=== PATIENT | male | born 1965 | race Asian ===

== ENCOUNTER 2018-06-08 20:02 | Inpatient (IN) | payer BC, OTHER ==
[~2018-06-08] VITALS: Ht 160 cm; Wt 72.6 kg
--- NOTE | 2018-06-08 20:09 | NUR ---
PT AMBULATES TO ER ACCOMPANIED BY WITH C/O EPIGASTRIC PAIN, SOB, AND N/V SINCE 1600 TODAY. PT DENIES CHEST PAIN, DIARRHEA, CONSTIPATION AT THIS TIME. SA02 100% RA. NSR ON MONITOR.
[2018-06-08] MEDS ORDERED: IV NORMAL SALINE 1000 ML BAG IV ONE (20:15)
[2018-06-08] MEDS ORDERED: ONDANSETRON 4 MG/2 ML VIAL IV ONE (20:15)
[2018-06-08] MEDS ORDERED: HYDROMORPHONE 1 MG/1 ML DISP.SYRIN IV ONE (20:15)
--- NOTE | 2018-06-08 20:23 | NUR ---
LABS DRAWN, MEDS GIVEN. XRAY AT BEDSIDE.
[2018-06-08] MEDS ORDERED: HYDROMORPHONE 1 MG/1 ML DISP.SYRIN ONE (20:26)
[2018-06-08] MEDS ORDERED: ONDANSETRON 4 MG/2 ML VIAL ONE (20:26)
[2018-06-08 20:39] LABS: BASOPHILS % (AUTO) 0.3 % (0.0-2.0); EOSINOPHILS % (AUTO) 0.2 % (0.0-7.0); HEMATOCRIT 44.6 % (36.7-47.1); HEMOGLOBIN 15.4 g/dL (12.5-16.3); LYMPHOCYTES # (AUTO) 0.7 K/uL (20.0-40.0); LYMPHOCYTES % (AUTO) 5.7 % (20.5-51.5); MEAN CORPUSCULAR HEMOGLOBIN 32.1 uug (23.8-33.4); MEAN CORPUSCULAR HGB CONC 34 g/dL (32.5-36.3); MEAN CORPUSCULAR VOLUME 93.1 fL (73.0-96.2); MONOCYTES # (AUTO) 0.3 K/uL (2.0-10.0); MONOCYTES % (AUTO) 2.8 % (0.0-11.0); NEUTROPHILS # (AUTO) 10.8 K/uL (1.8-8.9); PLATELET COUNT (AUTO) 280 K/uL (152-348); RED BLOOD CELL COUNT(AUTO) 4.79 MIL/uL (4.06-5.63); WHITE BLOOD COUNT (AUTO) 11.9 K/uL (3.6-10.2)
[2018-06-08 20:51] LABS: ALANINE AMINOTRANSFERASE 30 U/L (16-63); ALKALINE PHOSPHATASE 47 U/L (50-136); ASPARTATE AMINOTRANSFERASE 27 U/L (15-37); BILIRUBIN,DIRECT < 0.1 mg/dL (0.0-0.2); BILIRUBIN,TOTAL 0.4 mg/dL (0.2-1.0); CARBON DIOXIDE 25 mmol/L (21-32); CHLORIDE 99 mmol/L (98-107); CREATININE 0.7 mg/dL (0.6-1.3); GLUCOSE 131 mg/dL (74-106); LIPASE 248 U/L (73-393); POTASSIUM 3.9 mmol/L (3.5-5.1)
[2018-06-08 21:00] LABS: UREA NITROGEN, BLOOD 13 mg/dL (7-18)
[2018-06-08] MEDS ORDERED: IOHEXOL 300MG/ML 100 ML INFUS..BTL ONE (21:29)
[2018-06-08] MEDS ORDERED: NORMAL SALINE FLUSH 10 ML DISP.SYRIN ONE (21:29)
[2018-06-08] MEDS ORDERED: SWABABLE VALVE TRANSFER SET EA MC ONE (21:29)
[2018-06-08] MEDS ORDERED: IV NORMAL SALINE 250 ML IV ONE (21:29)
[2018-06-08] MEDS ORDERED: PIPERACILLIN SODIUM/TAZOBACTAM 3.375 G in IV DEXTROSE 5% 50 ML IV ONE (21:45)
[2018-06-08] MEDS ORDERED: KETOROLAC TROMETHAMINE 30 MG INJ IVP ONE (21:45)
[2018-06-08] MEDS ORDERED: PIPERACILLIN/TAZOBACTAM/D5W 50 ML IV ONE (22:05)
[2018-06-08] MEDS ORDERED: KETOROLAC TROMETHAMINE 30 MG INJ ONE (22:05)
--- NOTE | 2018-06-08 22:11 | NUR ---
PT BACK FROM CT SCAN. PT PLACED BACK ON MONITOR. PAIN MED GIVEN. ANTIBIOTIC INFUSING. AT BEDSIDE.
[2018-06-08 22:46] LABS: *BILIRUBIN,URIN NEGATIVE (NEGATIVE); *BLOOD, URINE Trace-intact (NEGATIVE); *CLARITY,URINE CLEAR (CLEAR); *COLOR,URINE YELLOW (YELLOW); *KETONES,URINE TRACE (NEGATIVE); *PROTEIN,URINE NEGATIVE (NEGATIVE); *UROBILINOGEN,URINE 0.2 E.U./dl (NORMAL); LEUKOCYTE ESTERASE ,URINE NEGATIVE (NEGATIVE); NITRITE, URINE NEGATIVE (NEGATIVE); PH,URINE 7.5 (5.0-8.0); UGLUCOSE NEGATIVE (NEGATIVE)
[2018-06-08 22:51] LABS: BACTERIA,URINE NONE SEEN /HPF (NONE SEEN); RBC,URINE 0-3 /HPF (0-3); SQUAMOUS EPITHELIAL CELL,UR NONE SEEN /HPF (NONE SEEN); WBC,URINE 0-3 /HPF (0-3)
--- NOTE | 2018-06-08 23:03 | NUR ---
Pt. admitted to MED/SURG , under care of CHERIE AGUILERA. Diagnosis: Cholecystitis Belongs List completed Report given to Thiago MCCALL.
[2018-06-08] MEDS ORDERED: Z GUARD REMEDY PASTE 57 GM TUBE TOP PRN (23:15)
[2018-06-08] MEDS ORDERED: MAGNESIUM HYDROXIDE 30 ML LIQUID UDC PO PRN (23:15)
[2018-06-08] MEDS ORDERED: ACETAMINOPHEN 325 MG TABLET PO PRN (23:15)
[2018-06-08] MEDS ORDERED: ONDANSETRON 4 MG/2 ML VIAL IV PRN (23:15)
--- NOTE | 2018-06-08 23:20 | NUR ---
Received patient from ER nurse in stable condition. No acute distress noted. Family at the bedside. Admit Dx of Cholelithiasis under [facility]IE[facility] Carmela Kang. Pertinent assessment completed. Patient is A/Ox4 & able to make all needs known. Noted with Right forearm peripheral IV 20G running with D5 1/2 NS at 75cc/hr. No signs of infiltration at IV site. Patient currently denying pain & SOB. Call light within reach of patient. Will continue to monitor through shift.
[2018-06-09] VITALS: BP 139/88
[2018-06-09] MEDS: IV D5 1/2 NS 1000 ML 1,000 ML IV PRN ×2 (00:05→12:07)
[2018-06-09 04:00] VITALS: BP 155/93
[2018-06-09] MEDS: KETOROLAC TROMETHAMINE 30 MG INJ IVP PRN ×2 (04:38→11:06)
[2018-06-09] MEDS ORDERED: PIPERACILLIN SODIUM/TAZO 3.375 GM VIAL ONE (04:58)
[2018-06-09 05:21] LABS: BASOPHILS % (AUTO) 0.2 % (0.0-2.0); EOSINOPHILS # (AUTO) 0.1 K/uL (0.0-0.7); EOSINOPHILS % (AUTO) 0.8 % (0.0-7.0); HEMOGLOBIN 14.9 g/dL (12.5-16.3); LYMPHOCYTES % (AUTO) 7.3 % (20.5-51.5); MEAN CORPUSCULAR HEMOGLOBIN 32.4 uug (23.8-33.4); MEAN CORPUSCULAR HGB CONC 35 g/dL (32.5-36.3); MEAN CORPUSCULAR VOLUME 91.5 fL (73.0-96.2); MONOCYTES # (AUTO) 1.1 K/uL (2.0-10.0); MONOCYTES % (AUTO) 8.1 % (0.0-11.0); NEUTROPHILS % (AUTO) 83.6 % (38.5-71.5); PLATELET COUNT (AUTO) 271 K/uL (152-348); RED BLOOD CELL COUNT(AUTO) 4.59 MIL/uL (4.06-5.63); WHITE BLOOD COUNT (AUTO) 13.1 K/uL (3.6-10.2)
[2018-06-09] MEDS: PIPERACILLIN/TAZOBACTAM/D5W 50 ML IV SCH ×4 (05:29→23:01)
[2018-06-09 05:43] LABS: CREATININE 0.7 mg/dL (0.6-1.3); MAGNESIUM 1.9 mg/dL (1.8-2.4); PHOSPHOROUS 3.1 mg/dL (2.5-4.9); POTASSIUM 3.2 mmol/L (3.5-5.1)
[2018-06-09 05:52] LABS: THYROID STIMULATING HORMONE 0.461 mIU/mL (0.358-3.740)
--- NOTE | 2018-06-09 06:26 | NUR ---
Patient stable through shift. No acute distress noted. Complaints of pain during the shift. BP elevated d/t pain. Pain management provided per MD order. All needs attended to. Medications administered per MD order. Patient to have Hida scan at 12 noon per Radiology. Consent form signed & placed in chart. Safety & comfort measures provided. Call light within reach. Will endorse to oncoming shift.
--- NOTE | 2018-06-09 08:00 | NUR ---
AWAKE ALERT COOPERATE WELL NO SOB OR ABD PAIN AT THIS TIME KEEP NPO ,SCHEDULE FOR HIDA SCAN TODAY AT NOON ,CONTINUE IVF INFUSION WELL RFA RESTING QUIET IN BED WITH CALL LIGHT IN REACH AND FAMILY AT BEDSIDE
--- NOTE | 2018-06-09 10:45 | NUR ---
Dorcas JEREZ SEEN PATIENT AND LAB RESULT AND ORDER IN CHART KCL IVPB GIVE ORDER
[2018-06-09] MEDS: POTASSIUM CHLORIDE 50 ML IV SCH ×3 (11:04→18:04)
--- NOTE | 2018-06-09 11:06 | NUR ---
C/O OF MID ABD PAIN MEDICATION PRN TORADOL GIVEN ORDER
[2018-06-09 11:49] VITALS: BP 140/91
--- NOTE | 2018-06-09 12:45 | NUR ---
TO NUCLEAR MED VIA W/C CONDITION STABLE
[2018-06-09 15:59] VITALS: BP 135/89
--- NOTE | 2018-06-09 16:30 | NUR ---
BACK TO ROOM CONTINUE IVF AND KCL IVPB STILL KEEP NPO WAITING FOR RESULT OF HIDA SCAN
--- NOTE | 2018-06-09 17:00 | NUR ---
HIDA SCAN RESULT BACK INFORM TO Dorcas CRESPO AT THIS TIME ,PATIENT RESTING QUIET NO PAIN OR N/V
--- NOTE | 2018-06-09 17:30 | NUR ---
STABLE HEMODYNAMIC STATUS ,PAIN UNDER CONTROL NO ACUTE DISTRESS SAFETY AND COMFORT MEASURE PROVIDED CALLLIGHT WITHIN REACH KEEP NPO AND CONTINUE IVF
--- NOTE | 2018-06-09 19:10 | NUR ---
RECEIVED PT AWAKE ON BED, NO COMPLAINTS OF DISCOMFORT AT THIS TIME. IV SITE ON RFA, PATENT AND INTACT. SAFETY MEASURES INITIATED, CALL GRUBER WITHIN REACH.
[2018-06-09 20:17] VITALS: BP 140/91
[2018-06-10] VITALS (8 sets, daily range): BP systolic 113–139; BP diastolic 75–93
[2018-06-10] MEDS: PIPERACILLIN/TAZOBACTAM/D5W 50 ML IV SCH ×3 (05:02→16:55)
[2018-06-10 06:32] LABS: BASOPHILS # (AUTO) 0.1 K/uL (0.0-8.0); BASOPHILS % (AUTO) 0.5 % (0.0-2.0); EOSINOPHILS # (AUTO) 0.4 K/uL (0.0-0.7); EOSINOPHILS % (AUTO) 3.4 % (0.0-7.0); HEMATOCRIT 42.9 % (36.7-47.1); HEMOGLOBIN 14.7 g/dL (12.5-16.3); LYMPHOCYTES # (AUTO) 1.1 K/uL (20.0-40.0); LYMPHOCYTES % (AUTO) 10.9 % (20.5-51.5); MEAN CORPUSCULAR HEMOGLOBIN 32.2 uug (23.8-33.4); MEAN CORPUSCULAR HGB CONC 34 g/dL (32.5-36.3); MEAN CORPUSCULAR VOLUME 94.1 fL (73.0-96.2); MONOCYTES % (AUTO) 9.6 % (0.0-11.0); NEUTROPHILS % (AUTO) 75.6 % (38.5-71.5); PLATELET COUNT (AUTO) 283 K/uL (152-348); RED BLOOD CELL COUNT(AUTO) 4.56 MIL/uL (4.06-5.63); WHITE BLOOD COUNT (AUTO) 10.6 K/uL (3.6-10.2)
--- NOTE | 2018-06-10 06:41 | NUR ---
PT ON BED, AAOX4, DENIES ANY SOB OR PAIN AT THIS TIME. IV SITE ON RFA, PATENT AND INTACT. PT KEPT ON NPO POST MIDNIGHT. ALL NEEDS ATTENDED AND MET. SAFE ENVIRONMENT MAINTAINED AT ALL TIMES, CALL GRUBER WITHIN REACH.
[2018-06-10 06:46] LABS: CREATININE 0.9 mg/dL (0.6-1.3); PHOSPHOROUS 2.9 mg/dL (2.5-4.9); POTASSIUM 3.7 mmol/L (3.5-5.1)
--- NOTE | 2018-06-10 08:00 | NUR ---
AWAKE ALERT COOPERATE WELL NO SOB OR PAIN KEEP NPO FOR SURGERY TODAY ,CONTINUE IVF INFUSION WELL RFA RESTING QUIET IN BED WITH CALL LIGHT IN REACH
[2018-06-10] MEDS: IV D5 1/2 NS 1000 ML 1,000 ML IV PRN (08:49)
--- NOTE | 2018-06-10 14:00 | NUR ---
CONSENT SIGNS AND CHECK LIST COMPLETE RESTING WELL NO PAIN
[2018-06-10] MEDS ORDERED: LIDOCAINE 1%-EPI 1:100,000 20 ML VIAL ONE (16:00)
[2018-06-10] MEDS ORDERED: BUPIVACAINE 0.25% 30 ML VIAL ONE (16:00)
--- NOTE | 2018-06-10 17:00 | NUR ---
STABLE CONDITION NO ACUTE DISTRESS KEEP NPO FOR SURGERY TONIGHT AND CONTINUE IVF SAFETY MEASURE PROVIDED ,CALL LIGHT WITHIN REACH
--- NOTE | 2018-06-10 17:15 | NUR ---
TO SURGERY VIA BED ACCOMPANIES WITH HIS
[2018-06-10] MEDS ORDERED: HYDROMORPHONE 2 MG/1 ML DISP.SYRIN ONE (17:37)
[2018-06-10] MEDS ORDERED: MIDAZOLAM HCL 2 MG/2 ML VIAL ONE (17:37)
[2018-06-10] MEDS ORDERED: ROCURONIUM BROMIDE 50 MG/5 ML VIAL ONE (17:38)
[2018-06-10] MEDS ORDERED: LIDOCAINE HCL 1% 20 ML VIAL MC ONE (17:59)
[2018-06-10] MEDS ORDERED: IV D5W-0.45% NS 1000 ML BAG IV ONE (17:59)
[2018-06-10] MEDS ORDERED: PROPOFOL 200 MG/20 ML BOTTLE IV ONE (17:59)
[2018-06-10] MEDS ORDERED: NEOSTIGMINE METHYLSULFATE 10 MG/10 ML VIAL IV ONE (17:59)
[2018-06-10] MEDS ORDERED: GLYCOPYRROLATE 0.2 MG/ML VIAL MC ONE (17:59)
[2018-06-10] MEDS ORDERED: ONDANSETRON 4 MG/2 ML VIAL IV ONE (17:59)
[2018-06-10] MEDS ORDERED: DEXAMETHASONE SOD PHOSPHATE 4 MG INJ IV ONE (17:59)
[2018-06-10] MEDS ORDERED: SEVOFLURANE 250 ML BOTTLE IH ONE (17:59)
[2018-06-10] MEDS ORDERED: diphenhydrAMINE 50 MG/1 ML VIAL ONE (18:16)
[2018-06-10] MEDS ORDERED: FENTANYL CITRATE 100 MCG/2 ML AMPUL ONE (19:33)
--- NOTE | 2018-06-10 20:25 | NUR ---
RECEIVED PT IN UNIT FROM OR, PT RESTING COMFORTABLY ON BED. ALERT TO VERBAL AND TACTILE STIMULI. NO SIGNS OF ACUTE DISTRESS NOTED AT THIS TIME. ON O2 2L WITH 99% O2 SAT, TOLERATING WELL. BRYON DRAIN IN PLACE, INTACT AND DRAINING WELL VIA GRAVITY WITH MINIMAL SANGUINEOUS OUTPUT. INCENTIVE SPIROMETER PROVIDED AND EDUCATION DONE. IV SITE ON RFA, PATENT AND INTACT. SAFETY MEASURES INITIATED, CALL GRUBER WITHIN REACH.
[2018-06-11 00:39] VITALS: BP 119/82
[2018-06-11] MEDS: PIPERACILLIN/TAZOBACTAM/D5W 50 ML IV SCH ×5 (00:59→23:29)
[2018-06-11] MEDS: KETOROLAC TROMETHAMINE 30 MG INJ IVP PRN ×2 (01:17→10:54)
[2018-06-11 04:00] VITALS: BP 128/85
[2018-06-11 06:27] LABS: BASOPHILS % (AUTO) 0.2 % (0.0-2.0); EOSINOPHILS % (AUTO) 0.1 % (0.0-7.0); HEMATOCRIT 45.7 % (36.7-47.1); HEMOGLOBIN 15.6 g/dL (12.5-16.3); LYMPHOCYTES % (AUTO) 10.2 % (20.5-51.5); MEAN CORPUSCULAR HEMOGLOBIN 32.3 uug (23.8-33.4); MEAN CORPUSCULAR HGB CONC 34 g/dL (32.5-36.3); MEAN CORPUSCULAR VOLUME 94.7 fL (73.0-96.2); MONOCYTES # (AUTO) 0.7 K/uL (2.0-10.0); MONOCYTES % (AUTO) 7.2 % (0.0-11.0); NEUTROPHILS # (AUTO) 7.7 K/uL (1.8-8.9); NEUTROPHILS % (AUTO) 82.3 % (38.5-71.5); PLATELET COUNT (AUTO) 290 K/uL (152-348); RED BLOOD CELL COUNT(AUTO) 4.83 MIL/uL (4.06-5.63); WHITE BLOOD COUNT (AUTO) 9.4 K/uL (3.6-10.2)
[2018-06-11 06:47] LABS: BILIRUBIN,TOTAL 0.7 mg/dL (0.2-1.0); CREATININE 0.8 mg/dL (0.6-1.3); MAGNESIUM 2.2 mg/dL (1.8-2.4); PHOSPHOROUS 4.1 mg/dL (2.5-4.9); POTASSIUM 4.1 mmol/L (3.5-5.1); TOTAL PROTEIN, SERUM 7.4 g/dL (6.4-8.2)
--- NOTE | 2018-06-11 06:49 | NUR ---
PT RESTING COMFORTABLY ON BED. DENIES ANY DISCOMFORT AT THIS TIME. SX SITE KEPT C/D/I. BRYON DRAIN PATENT AND DRAINING WELL WITH MINIMAL SEROSANGUINEOUS DRAINAGE. ON O2 2L VIA NC WITH SATURATION OF 96%, TOLERATING WELL. ENCOURAGE TO USE INCENTIVE SPIROMETRY. PT VERBALIZED HE HASNT PASSED OUT FLATUS. SAFE ENVIRONMENT MAINTAINED AT ALL TIMES, CALL GRUBER WITHIN REACH.
--- NOTE | 2018-06-11 07:42 | NUR ---
Noted patient walking during change of shift. No immediate s/sx of SOB, distress or discomfort. Pt is now up in a chair and verbalizes no pain at this time, AAO times 4. Patient is accompanied by [facility]
[2018-06-11] MEDS ORDERED: PANTOPRAZOLE SODIUM 40 MG TABLET.DR PO SCH (09:00)
--- NOTE | 2018-06-11 09:21 | NUR ---
PT IS NOTED TO HAVE WALKED AROUND THE UNIT, PATIENT DENIES PAIN
[2018-06-11] MEDS: IV D5 1/2 NS 1000 ML 1,000 ML IV PRN ×2 (10:11→23:32)
[2018-06-11 12:41] VITALS: BP 127/69
[2018-06-11 15:46] VITALS: BP 98/56
--- NOTE | 2018-06-11 16:22 | NUR ---
PER PATIENT: PASSED FLATUS 3X's,NO PAIN AT THIS TIME
--- NOTE | 2018-06-11 17:16 | NUR ---
PT IS TOLERATING SITTING IN CHAIR. 45 CC REMOVED FROM BRYON DRAIN
[2018-06-11] MEDS: HYDROCODONE/APAP 5-325MG TABLET PO PRN (17:45)
--- NOTE | 2018-06-11 17:46 | NUR ---
Pt tolerating full liquids well. Pt stated pain level 5-6/10 on right side of the abdomen, [place] given
--- NOTE | 2018-06-11 18:51 | NUR ---
Pt has been compliant with medications and nursing care. Tolerating meals well, is now on full liquids, no s/sx of N/V/D, no BM yet. Pt has been able to verbalize his needs, has been ambulating throughout the day. Noted patient has a great support system.
--- NOTE | 2018-06-11 19:00 | NUR ---
RECEIVED IN BED ALERT ORIENTED, NO SOB NO CHEST PAIN, ABDOMEN DRESSING, RODRIGUEZ SYLVESTER WITH SEROSANGENIOUS DRAINAGE IN SMALL AMOUNT, CONTINUE TO APPLY ICE PACK FOR PAIN AND DISCOMFORT. CALL LIGHT WITHIN REACH.
[2018-06-11 19:34] VITALS: BP 125/80
[2018-06-12 03:33] VITALS: BP 135/89
[2018-06-12] MEDS: PIPERACILLIN/TAZOBACTAM/D5W 50 ML IV SCH ×3 (05:10→18:00)
--- NOTE | 2018-06-12 06:19 | NUR ---
PATIENT SLEPT MOST OF THE NIGHT, ABDOMINAL DRESSING INTACT, SITE WITH JACSON SYLVESTER DRAINING FROM SEROSANGUINEOUS TO PALE YELLOW DRAINING TOTAL 40CC. DID NOT REQUEST PAIN MEDICATION, ICE PACK WAS USED TO RELIEVE PAIN, PATIENT PASSING GAS, AND VOIDING FREELY, TOLERATE CURRENT DIET. NO BM YET. PATIENT HAS NO SOB NO CHEST PAIN, ASSISTED WITH TOILETING, ALSO USED URINAL FOR VOIDING, INSTRUCT PATIENT TO USED INCENTIVE SPIROMETER WHILE AWAKE AND TOLERATE, CALL LIGHT WITHIN REACH.
[2018-06-12 06:23] LABS: BASOPHILS # (AUTO) 0.1 K/uL (0.0-8.0); BASOPHILS % (AUTO) 0.9 % (0.0-2.0); EOSINOPHILS # (AUTO) 0.3 K/uL (0.0-0.7); EOSINOPHILS % (AUTO) 4.7 % (0.0-7.0); HEMATOCRIT 44.7 % (36.7-47.1); HEMOGLOBIN 15.2 g/dL (12.5-16.3); LYMPHOCYTES # (AUTO) 1.5 K/uL (20.0-40.0); LYMPHOCYTES % (AUTO) 24.4 % (20.5-51.5); MEAN CORPUSCULAR HEMOGLOBIN 32.3 uug (23.8-33.4); MEAN CORPUSCULAR HGB CONC 34 g/dL (32.5-36.3); MEAN CORPUSCULAR VOLUME 94.8 fL (73.0-96.2); MONOCYTES # (AUTO) 0.6 K/uL (2.0-10.0); NEUTROPHILS # (AUTO) 3.8 K/uL (1.8-8.9); PLATELET COUNT (AUTO) 281 K/uL (152-348); RED BLOOD CELL COUNT(AUTO) 4.72 MIL/uL (4.06-5.63); WHITE BLOOD COUNT (AUTO) 6.3 K/uL (3.6-10.2)
[2018-06-12 06:40] LABS: BILIRUBIN,TOTAL 0.7 mg/dL (0.2-1.0); CREATININE 0.8 mg/dL (0.6-1.3); POTASSIUM 3.4 mmol/L (3.5-5.1); TOTAL PROTEIN, SERUM 6.8 g/dL (6.4-8.2)
[2018-06-12] MEDS ORDERED: PANTOPRAZOLE SODIUM 40 MG TABLET.DR PO SCH (07:00)
--- NOTE | 2018-06-12 07:49 | NUR ---
Received patient AAO X4. Per patient he had a BM this morning.Patient stated mild pain however refused pain medications at this time.No immediate s/sx of SOB, or distress. Pt is able to verbalize needs
[2018-06-12] MEDS: HYDROCODONE/APAP 5-325MG TABLET PO PRN ×2 (10:00→16:20)
--- NOTE | 2018-06-12 11:01 | NUR ---
Family by bedside
[2018-06-12 11:45] VITALS: BP 137/93
[2018-06-12] MEDS ORDERED: INFLUENZA VACCINE 2018-2019 0.5 ML DISP.SYRIN IM ONE (12:30)
[2018-06-12] MEDS ORDERED: POTASSIUM CHLORIDE 20 MEQ TAB.PRT.SR PO ONE (12:45)
[2018-06-12 15:00] VITALS: BP 151/90
--- NOTE | 2018-06-12 15:23 | NUR ---
35CC OF SEROSANGUINEOUS FLUID REMOVED FROM BRYON DRAIN
[2018-06-12] MEDS ORDERED: HYDR-3326 PO (15:40)
--- NOTE | 2018-06-12 17:45 | NUR ---
Seen and evaluated by Gracia CABALLERO
--- NOTE | 2018-06-12 17:55 | NUR ---
Pt has left the unit accompanied by and son. Pt was able to walk on his own. No immediate s/sx of SOB or distress. Discharge papers and personal belongings list signed by the patient and all items accounted for. IV and ID band removed. Pt VS stable, pt able to verbalize needs. Medication prescription explained to the patient: Cowen 5/325mg ordered per MD for pain. Educational packets given on diagnoses. Pt was discharged with orders from
== END 2018-06-12 18:00 | disposition home or self-care (01) | DRG 418 ==
LOC: ER 20:10 → MED 23:12
PROVIDERS: ADMIT Registered Nurse; ATTEND Registered Nurse
PROC: 0FB04ZX Excision of Liver, Percutaneous Endoscopic Approach, Diagnostic (ICD-10-PCS; principal; 2018-06-10 17:37)
PROC: 0FT44ZZ Resection of Gallbladder, Percutaneous Endoscopic Approach (ICD-10-PCS; principal; 2018-06-10 17:37)
DX: K80.01 Calculus of gallbladder with acute cholecystitis with obstruction (principal); J98.11 Atelectasis; K82.A1 Gangrene of gallbladder in cholecystitis; N20.0 Calculus of kidney; E83.51 Hypocalcemia; E87.6 Hypokalemia; R74.0 Nonspecific elevation of levels of transaminase and lactic acid dehydrogenase [LDH]; E78.5 Hyperlipidemia, unspecified
CPT/HCPCS: 36415; 70030-TC; 71045; 78445; 83690; 83735; 84100; 84443; 85025; 85730; 90686; 93005; A4663; A9537; G0378; J1100; J1170; J1200; J1885; J2250; J2405; J2543; J2710; J3010; J3480; J3490; J7030; J7040; J7050; J7060; Q9967

== ENCOUNTER 2019-06-14 15:26 | Emergency (ER) | payer BC, OTHER ==
[~2019-06-14] VITALS: Ht 160 cm; Wt 72.6 kg
[~2019-06-14 15:26] MED LIST: HYDR-3326 PO
[2019-06-14] MEDS ORDERED: AMOX-430 PO (15:39)
[2019-06-14] MEDS ORDERED: LIDOCAINE 4% TOPICAL 50 ML BOTTLE TP ONE (16:00)
[2019-06-14] MEDS ORDERED: VANCOMYCIN IV 1,000 MG in IV DEXTROSE 5% 250 ML IV ONE (16:00)
[2019-06-14] MEDS ORDERED: VANCOMYCIN IV 200 ML ONE (16:28)
[2019-06-14] MEDS ORDERED: LIDOCAINE 4% TOPICAL 50 ML BOTTLE ONE (16:28)
--- NOTE | 2019-06-14 18:23 | NUR ---
Patient discharged to home in stable conditon. Written and verbal after care instructions given. Patient verbalizes understanding of instructions.
== END 2019-06-14 18:30 | disposition home or self-care (01) ==
LOC: ER 15:26
DX: L03.012 Cellulitis of left finger (principal); Z90.49 Acquired absence of other specified parts of digestive tract; Z79.899 Other long term (current) drug therapy
CPT/HCPCS: 96365; 96366; 99283; J3370; A4663

== ENCOUNTER 2019-06-18 10:31 | Emergency (ER) | payer BC, OTHER ==
[~2019-06-18] VITALS: Ht 160 cm; Wt 72.6 kg
[~2019-06-18 10:31] MED LIST changes: +AMOX-430 PO; -HYDR-3326 PO
--- NOTE | 2019-06-18 10:38 | NUR ---
pt ambulating with a steady gait. A&Ox4. c/o left 5th digit pain swelling. pulled luggage and cut finger x16 days ago per pt. currently on PO ATB with little help per pt. pain does not radiate, redness swelling noted on left 5th digit. limit ROM noted. speech clear and able to follow commands, no cardiovascular distress noted. pulses palpable. capillary refill <3 sec. breathing even and unlabored. denies any SOB. denies any /GI distress noted. fall precautions implemented per protocol, bed low, call light within reach, s/r up x2
--- NOTE | 2019-06-18 10:52 | NUR ---
Patient discharged to home in stable conditon. Written and verbal after care instructions given. Patient verbalizes understanding of instructions.
== END 2019-06-18 10:53 | disposition home or self-care (01) ==
LOC: ER 10:31
DX: L03.012 Cellulitis of left finger (principal); Z90.49 Acquired absence of other specified parts of digestive tract; Z79.891 Long term (current) use of opiate analgesic; Z79.899 Other long term (current) drug therapy
CPT/HCPCS: A4663

== ENCOUNTER 2019-12-14 15:21 | Emergency (ER) | payer BC, OTHER ==
[~2019-12-14] VITALS: Ht 160 cm; Wt 72.6 kg
--- NOTE | 2019-12-14 15:43 | NUR ---
Devorah araya in [facility] - 12/14/19 at 1606 by WINSOME UROSTOMY FLUSHED EASILY WITHOUT ANY RESISTANCE.
--- NOTE | 2019-12-14 16:06 | NUR ---
Patient discharged to home in stable condition. Written and verbal after care instructions given. Patient verbalizes understanding of instructions. Stressed follow up or return to ER for worsening s/s.
== END 2019-12-14 16:02 | disposition home or self-care (01) ==
LOC: ER 15:23
DX: Z20.828 Contact with and (suspected) exposure to other viral communicable diseases (principal)
CPT/HCPCS: A4663